=== PATIENT | male | born 1990 | race Caucasian/White ===

== ENCOUNTER 2020-09-26 09:25 | Emergency (ER) | payer SELFPAY ==
[~2020-09-26] VITALS: Ht 182.8 cm; Wt 88.4 kg
[2020-09-26 09:35] VITALS: BP 137/66
--- NOTE | 2020-09-26 09:50 | ED General ---
General Chief Complaint: General Problems/Pain Stated Complaint: ID VERIFICATION Source of Information: Patient Exam Limitations: No Limitations History of Present Illness Date Seen by Provider: September 26, 2020 Time Seen by Provider: 09:39 Initial Comments Here with no medical concerns. He is from [place] and needs ID verification. He has his certificate and some other documents that he used for registration. Patient was told that he can get verification through the hospital. He is unsure of actually what service or what they meant and it may just be that he needs mail from the hospital to him. Otherwise he has no concerns. Associated Systoms: No Fever/Chills, No Shortness of Air Allergies and Home Medications Allergies Coded Allergies: No Known Drug Allergies (Unverified , 09/26/20) Patient Home Medication List Home Medication List Reviewed: Yes Review of Systems Review of Systems Constitutional: no symptoms reported Respiratory: no symptoms reported Cardiovascular: no symptoms reported Past Murnhlk-Deenke-Tkleyf Hx Past Med/Social Hx: Reviewed Nursing Past Med/Soc Hx Patient Social History Alcohol Use: Denies Use Drug of Choice: marijuana Smoking Status: Current Everyday Smoker Type Used: Cigarettes 2nd Hand Smoke Exposure: Yes Recent Hopitalizations: No Past Medical History Surgeries: Yes (L shoulder dislocation) Orthopedic Respiratory: No Cardiac: No Neurological: No Genitourinary: No Gastrointestinal: No Musculoskeletal: No Endocrine: No HEENT: No Cancer: No Psychosocial: Yes PTSD Blood Disorders: No Family Medical History Reviewed Nursing Family Hx Physical Exam Vital Signs Capillary Refill : Height, Weight, BMI Height: '" Weight: lbs. oz. kg; BMI Method: General Appearance: No Apparent Distress, WD/WN Respiratory: Lungs Clear, Normal Breath Sounds Cardiovascular: Regular Rate, Rhythm, No Murmur Neurologic/Psychiatric: Alert, Oriented x3 Progress/Results/Core Measures Suspected Sepsis SIRS Temperature: Pulse: Respiratory Rate: Blood Pressure / Mean: Results/Orders Vital Signs/I&O Capillary Refill : Progress Note : Progress Note Seen and evaluated. Vital signs normal and medical screening exam complete with no concerns. I did discuss with him about Covid vaccination and he will follow- up with [facility] for that. Discharged home with return precautions. Patient verbalized understanding instructions and agreement with plan. Departure Impression Primary Impression: Encounter for medical screening examination Disposition: HOME, SELF-CARE Condition: Improved Departure-Patient Inst. Decision time for Depature: 09:49 Referrals: VANESSA JERONIMO DO NO,LOCAL PHYSICIAN (PCP) Primary Care Physician Patient Instructions: COVID-19 Vaccines Add. Discharge Instructions: All discharge instructions reviewed with patient and/or family. Voiced understanding. Follow-up with [facility] for Covid vaccination. You may call the number above and request vaccine appointment. Return for other concerns as needed. DALI GOMES MD September 26, 2020 09:50
== END 2020-09-26 09:55 | disposition home or self-care (01) ==
LOC: ER 09:30
DX: Z00.00 Encounter for general adult medical examination without abnormal findings (principal); F17.210 Nicotine dependence, cigarettes, uncomplicated
CPT/HCPCS: 99281